=== PATIENT | male | born 1990 | race American Indian/Alaskan Native ===

== ENCOUNTER 2018-09-14 18:43 | Emergency (ER) | payer OTHER ==
[2018-09-14 19:26] VITALS: O2SAT 97; BMI 28.3
[2018-09-14] MEDS ORDERED: Sodium Chloride 0.9% 1,000 ML IV STA (19:47)
--- NOTE | 2018-09-14 19:56 | ED PDOC ---
Arrival/HPI - General Chief Complaint: Headache Time Seen by Provider: 09/14/18 19:23 Historian: Patient - History of Present Illness Narrative History of Present Illness (Text): 09/14/18 19:58 27-year-old female with no significant past medical history, presents emergency room complaining of left upper quadrant pain that started today associated with nausea and 5-6 episodes of diarrhea in the past 2 hours. Patient states that he has had similar symptoms in the past related to a stomach virus. He also reports of a mild headache for the past 2-3 days with relief from taking Motrin. Otherwise reports no fever, chills, abdominal surgeries, recent antibiotic intake, recent travel, sick contacts, history of peptic ulcer disease, gallstones or kidney stones, URI, sore throat, head trauma. PMD [facility] Past Medical History - Infectious Disease Hx of Infectious Diseases: None - Tetanus Immunization Tetanus Immunization: Up to Date - Past Medical History Past Medical History: No Previous - Cardiac Hx Cardiac Disorders: No Hx Hypertension: No - Pulmonary Hx Tuberculosis: No - Neurological HX Cerebrovascular Accident: No Hx Seizures: No - Hematological/Oncological Hx Cancer: No - Genitourinary/Gynecological Hx Sexually Transmitted Diseases: No - Psychiatric Hx Emotional Abuse: Yes (PTSD) Hx Physical Abuse: No Hx Substance Use: No - Past Surgical History Past Surgical History: No Previous - Anesthesia Hx Anesthesia: No - Suicidal Assessment Feels Threatened In Home Enviroment: No Family/Social History Family/Social History: No Known Family HX Smoking Status: Light Smoker < 10 Cigarettes Daily Hx Alcohol Use: Yes Hx Substance Use: No Allergies/Home Meds Allergies/Adverse Reactions: Allergies No Known Allergies Allergy (Verified 02/27/16 03:13) Review of Systems - Review of Systems Constitutional: absent: Fatigue, Fevers ENT: absent: Sore Throat, Rhinorrhea, Sinus Congestion Respiratory: absent: SOB, Cough Cardiovascular: absent: Chest Pain, Palpitations Gastrointestinal: Abdominal Pain, Diarrhea, Nausea. absent: Vomiting Genitourinary Male: absent: Dysuria, Frequency, Hematuria Musculoskeletal: absent: Arthralgias, Back Pain, Neck Pain Skin: absent: Rash, Pruritis, Skin Lesions Neurological: Headache. absent: Dizziness Physical Exam Vital Signs Temp Pulse Resp BP Pulse Ox 09/14/18 18:55 99.4 F 94 H 18 138/73 97 Temperature: Afebrile Blood Pressure: Normal Pulse: Regular Respiratory Rate: Normal Appearance: Positive for: Well-Appearing, Non-Toxic, Comfortable Pain Distress: None Mental Status: Positive for: Alert and Oriented X 3 - Systems Exam Head: Present: Atraumatic, Normocephalic Pupils: Present: PERRL Extroacular Muscles: Present: EOMI Conjunctiva: Present: Normal Mouth: Present: Moist Mucous Membranes Pharnyx: Present: Normal. No: ERYTHEMA, EXUDATE Neck: Present: Normal Range of Motion. No: Meningeal Signs, Lymphadenopathy Respiratory/Chest: Present: Clear to Auscultation, Good Air Exchange. No: Respiratory Distress, Accessory Muscle Use Cardiovascular: Present: Regular Rate and Rhythm, Normal S1, S2. No: Murmurs Abdomen: Present: Tenderness (to the L side of the abdomen). No: Distention, Peritoneal Signs, Rebound, Guarding Back: Present: Normal Inspection. No: CVA Tenderness Upper Extremity: Present: Normal Inspection. No: Cyanosis, Edema Lower Extremity: Present: Normal Inspection. No: Edema Neurological: Present: GCS=15, CN II-XII Intact, Speech Normal Skin: Present: Warm, Dry, Normal Color. No: Rashes Psychiatric: Present: Alert, Oriented x 3, Normal Insight, Normal Concentration Medical Decision Making ED Course and Treatment: 09/14/18 19:54 Plan : - IV - Labs - UA - Influenza - Pepcid / Zofran / Toradol - Reassess / disposition 09/14/18 20:45 On reevaluation, he is sleeping comfortably in bed in no acute distress. Patient arouses easily, reports improvement of symptoms, denies any headache, abdominal pain or nausea. On exam, patient remains awake alert and oriented 3 in no acute distress. Neck is supple, abdomen soft and nontender, repeat neuro exam shows no focal findings. Diagnostic results discussed with the patient in great detail. Diagnosis of likely stomach virus discussed with the patient. Advised to follow up with primary care physician or referral provided in 1-2 days without fail. Advised to take medication as prescribed. Return to the emergency room at any time for any new or worsening symptoms. Patient states he fully agrees with and understands discharge instructions. States that he agrees with the plan and disposition. Verbalized and repeated discharge instructions and plan. I have given the patient opportunity to ask any additional questions. - Medication Orders Current Medication Orders: Sodium Chloride (Sodium Chloride 0.9%) 1,000 mls @ 1,000 mls/hr IV .Q1H STA Stop: 09/14/18 20:46 Discontinued Medications Famotidine (Pepcid) 20 mg IVP STAT STA Stop: 09/14/18 19:48 Ketorolac Tromethamine (Toradol) 30 mg IVP STAT STA Stop: 09/14/18 19:49 Ondansetron HCl (Zofran Inj) 4 mg IVP STAT STA Stop: 09/14/18 19:48 - PA / [employer] / Resident Statement /DO has reviewed & agrees with the documentation as recorded. Disposition/Present on Arrival - Present on Arrival Any Indicators Present on Arrival: No History of DVT/PE: No History of Uncontrolled Diabetes: No Urinary Catheter: No History of Decub. Ulcer: No History Surgical Site Infection Following: None - Disposition Have Diagnosis and Disposition been Completed?: Yes Diagnosis: Acute gastroenteritis, Headache Disposition: HOME/ ROUTINE Disposition Time: 20:45 Patient Plan: Discharge Patient Problems: Current Active Problems Problem Status Onset Acute gastroenteritis Acute Headache Acute Condition: STABLE Discharge Instructions (ExitCare): Headache, Adult, Gastroenteritis (DC), Gastroenteritis (GEN) Additional Instructions: Thank you for letting us take care of you today. You were treated for acute gastroenteritis. The emergency medical care you received today was directed at your acute symptoms. If you were prescribed any medication, please fill it and take as directed. It may take several days for your symptoms to resolve. Return to the Emergency Department if your symptoms worsen, do not improve, or if you have any other problems. Please contact your doctor in 2 days for re-evaluation and follow up / or call one of the physicians/clinics you have been referred to that are listed on the Patient Visit Information form that is included in your discharge packet. Bring any paperwork you were given at discharge with you along with any medications you are taking to your follow up visit. Our treatment cannot replace ongoing medical care by a primary care provider (PCP) outside of the emergency department. Thank you for allowing the [facility] team to be part of your care today. Prescriptions: Famotidine [Pepcid] 40 mg PO DAILY #20 tablet Ondansetron ODT [Zofran ODT] 4 mg PO DAILY PRN #20 odt PRN Reason: Nausea/Vomiting Referrals: Kvng Palumbo MD [Staff Provider] - Follow up with primary Forms: [email or web address] (T[place]anian), WORK NOTE
[2018-09-14 20:21] LABS: URINE BILIRUBIN NEGATIVE (NEGATIVE); URINE BLOOD NEGATIVE (NEGATIVE); URINE GLUCOSE (UA) NEGATIVE (NEGATIVE); URINE LEUKOCYTE ESTERASE NEGATIVE Leu/uL (NEGATIVE)
[2018-09-14 20:23] LABS: BASO # 0.01 K/mm3 (0.0-2.0); BASO % 0.1 % (0.0-3.0); EOS % 0.4 % (1.5-5.0); HEMOGLOBIN 14.5 g/dL (14.0-18.0); LYMPH # 0.5 (1.2-3.4); LYMPH % 5.9 % (22.0-35.0); MEAN CELL VOLUME 88.4 fl (80.0-105.0); MEAN CORPUSCULAR HEMOGLOBIN 31.2 pg (25.0-35.0); MEAN CORPUSCULAR HGB CONC 35.3 g/dl (31.0-37.0); MEAN PLATELET VOLUME 9.2 fl (7.0-11.0); MONO # 0.5 (0.1-0.6); MONO % 5.8 % (1.0-6.0); RBC 4.65 10^6/uL (3.5-6.1); RED CELL DISTRIBUTION WIDTH 12.6 % (11.5-14.5)
[2018-09-14 20:31] LABS: URINE APPEARANCE CLEAR (CLEAR); URINE PROTEIN NEGATIVE mg/dL (<30 mg/dL)
[2018-09-14 20:33] LABS: ALB/GLOB RATIO 1.3 (1.1-1.8); ALBUMIN 4.5 g/dL (3.0-4.8); ALT/SGPT 24 U/L (7-56); AST/SGOT 26 U/L (17-59); BLOOD UREA NITROGEN 14 mg/dL (7-21); CALCIUM 9.2 mg/dL (8.4-10.5); GFR NON-AFRICAN AMERICAN > 60; LIPASE 105 U/L (23-300)
[2018-09-14 20:34] LABS: INR 1.11; PARTIAL THROMBOPLASTIN TIME 31.4 Seconds (26.9-38.3); PROTHROMBIN TIME 12.3 SECONDS (9.4-12.5)
[2018-09-14 21:10] VITALS: BP 108/60; PULSE 89; RESP 16; TEMP 98.5
== END 2018-09-14 21:15 | disposition home or self-care (01) ==
LOC: ED 18:43
DX: K52.9 Noninfective gastroenteritis and colitis, unspecified (principal); R51 Headache; F17.210 Nicotine dependence, cigarettes, uncomplicated
CPT/HCPCS: 80053; 81003; 83690; 83735; 85025; 85610; 85730; 87804; 96374; 96375; 99285; J1885; J2405; J7030